=== PATIENT | male | born 1990 | race Caucasian/White ===

== ENCOUNTER → 2023-05-15 06:33 | Outpatient (REF) | payer OTHER, SELFPAY | LOC: MRI 06:33 | PROVIDERS: ATTENDING PHYSICIAN Student in an Organized Health Care Education/Training Program | DX: G89.29 Other chronic pain (principal) | CPT/HCPCS: 73221 ==

== ENCOUNTER 2024-05-12 14:56 | Emergency (ER) | payer SELFPAY ==
[2024-05-12 15:00] VITALS: BP 173/100
--- NOTE | 2024-05-12 15:11 | ED.MUSCINJ ---
HPI-Injury
General
Chief Complaint: Musculo-Skeletal Complaint
Source: patient
Exam Limitations: none
Time Seen by Provider: 05/12/24 15:10
History of Present Illness-Injury
Initial Injury comments:
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 He now notes swelling and
bruising to the area he notes pain with bearing weight. He denies chest pain or shortness of breath. No prior injury similar to this. He is healthy otherwise. No other complaints
Past History
Past History
ED Past Medical History: Asthma (very slight)
ED Past Surgical History: None
Social History
Tobacco: Non-smoker
Alcohol: Occasional
Personal: Single
Living: with family
Family History
Family History: Negative Diabetes or Early CAD
Phy Exam
Physical Exam
Physical Exam:
General: Well-appearing male no acute respiratory distress
HEENT: Normocephalic atraumatic
Musculoskeletal exam: Right knee with ecchymosis and tender over the distal hamstring. The distal tendon is not palpable on the lateral aspect. There is no intra-articular effusion he has good flexion he has good extension. No calf tenderness
Skin is intact
MDM/Problems Addressed
Differential Diagnosis Includes:
Right posterior thigh pain after feeling a pop. Consider hamstring strain. Unlikely to be fracture or DVT. Explained the patient that this is likely the case. Recommend rest ibuprofen Tylenol. No indication for any emergent x-ray or CAT scan.
He was okay with this. Work note filled out. Stable for discharge
*Critical Care Note
Total Time (30-74mins, 75-104mins- exclusive of procedures): Not Applicable
ED Attending Note
-
Portions of this chart may have been created with voice recognition software.� Occasional wrong word or��sound alike� substitutions may have occurred due to the inherent limitations of voice recognition software.
Discharge Plan
Departure
Patient Disposition: Home (Routine Discharge)
Date of Disposition: 05/12/24
Time of Disposition: 15:15
Patient with high blood pressure during this ER visit?: No
Discharge Problem:
Hamstring strain
Instructions: Muscle and Bone Pain (DC)
Prescriptions:
No Action
No Current Medications
0
Stand Alone Forms: Return to Work
Activity Restrictions/Additional Instructions:
Rest. Use warm compresses to the area. Use ibuprofen or Tylenol for pain. Follow-up with Workmen's Comp. prior to returning to work
Interventions
Interventions:
*Risk Screen - Suicide Last Done: 05/12/24 15:00
*General Assessment Last Done: 05/12/24 15:00
*ED COVID-19 Vaccine History Last Done: 05/12/24 15:00
Discharge Date and Time
Print Language: KOREAN
== END 2024-05-12 15:21 | disposition home or self-care (01) ==
LOC: EMR 14:56
PROVIDERS: EMERGENCY PHYSICIAN Emergency Medicine; FAMILY PHYSICIAN Family Medicine
DX: S76.811A Strain of other specified muscles, fascia and tendons at thigh level, right thigh, initial encounter (principal); X58.XXXA Exposure to other specified factors, initial encounter; Y93.02 Activity, running; J45.909 Unspecified asthma, uncomplicated
CPT/HCPCS: 99282